=== PATIENT | male | born 1980 | race Caucasian/White ===

== ENCOUNTER 2020-09-19 09:48 | Emergency (ER) | payer BC, SELFPAY ==
--- NOTE | ~2020-09-19 | XR_ITS ---
EXAMINATION: XR tibia fibula RT 2V, XR ankle RT min 3V DATE: 09/19/2020 10:17 INDICATION: Lateral right ankle and proximal fibular pain post injury TECHNIQUE: 1. Anteroposterior and lateral views of the right tibia and fibula were obtained. 2. Anteroposterior, oblique, mortise, and lateral views of the right ankle were obtained. COMPARISON: None. FINDINGS: Nondisplaced oblique fracture at the proximal diaphysis of the right fibula. Bone alignment remains n ormal including a congruent ankle mortise. No other fractures identified. Joint spaces are normal at the right knee, ankle, mid and hindfoot. Soft tissue swelling about the lateral malleolus as well as anterior to the ankle. No right knee or ankle joint effusion. IMPRESSION: 1. Nondisplaced oblique fracture of the proximal right fibular diaphysis. Reviewed, dictated and finalized at location A. [facility] MANAGER IMPRESSION: 1. Nondisplaced oblique fracture of the proximal right fibular diaphysis.
[2020-09-19 09:58] VITALS: BP 143/82; PULSE 85; RESP 12; TEMP 36.2; O2SAT 100
--- NOTE | 2020-09-19 10:13 | ED.LOWEXIN ---
HPI - Extremity Injury (Lower) General Chief Complaint: Extremity Injury, Lower Stated Complaint: rt leg injury Source: patient Mode of arrival: ambulatory Limitations: no limitations History of Present Illness HPI Narrative: Patient is a 40-year-old male who presents with right leg pain. He reports hiking yesterday and slipped and fell, twisting her right leg. He reports pain below knee, mild ankle swelling. He denies all other injuries. He is weightbearing with pain. Denies taking [id number] medications at this time for pain relief. MD complaint: leg injury Related Data Home Medications Medication Instructions Recorded Confirmed No Home Medications 09/19/20 09/19/20 Allergies Allergy/AdvReac Type Severity Reaction Status Date / Time No Known Allergies Allergy Verified 09/19/20 10:31 Review of Systems Review of Systems: Narrative: CONSTITUTIONAL: Denies fever, chills, or sweats. EYES: Denies visual changes, redness, or discharge. ENT: Denies rhinorrhea, congestion, sore throat, or otalgia. CARDIOVASCULAR: Denies chest pain, palpitations, or edema. RESPIRATORY: Denies cough or dyspnea. GASTROINTESTINAL: Denies abdominal pain, nausea, vomiting, or diarrhea. GENITOURINARY: Denies dysuria or hematuria. SKIN: Denies rash or itching. MUSCULOSKELETAL: Right leg pain NEUROLOGIC: Denies headache, numbness, dizziness, or weakness. PSYCHIATRIC: Denies anxiety or depression. PMFSH Past Medical History Medical History (Updated 09/19/20 @ 10:52 by RISHABH Urban) No significant past medical history Surgical History Surgical History (Updated 09/19/20 @ 10:52 by RISHABH Urban) No significant past surgical history Family History Family History (Updated 09/19/20 @ 10:53 by RISHABH Urban) Other No significant family history Social History Social History (Updated 09/19/20 @ 10:54 by RISHABH Urban) Smoking status: Never smoker Alcohol intake: current Alcohol use details: Occasional Substance use: never Occupation/Education: occupation Exam Narrative: Exam Narrative: GENERAL: Well-appearing, well-nourished, and in no acute distress. HEAD: Normocephalic, atraumatic. EYES: No redness or drainage. ENT: Mucous membranes pink and moist. CHEST: No respiratory distress. HEART: Regular rate and rhythm. EXTREMITIES: Point tenderness distal of right knee, mild swelling at right lateral ankle. Good capillary refill, distal sensation intact SKIN: Warm, dry, no rash. NEURO: No focal deficits. Alert and oriented x3. Gait steady. PSYCH: Normal affect. No signs of depression or anxiety. MDM - Extremity Injury (Lower) MDM Narrative Medical decision making narrative: Patient has nondisplaced fracture of right proximal fibula. Patient placed in knee immobilizer and crutches at this time, follow-up with orthopedics. Instructed on pain control, ice, elevation. Patient is stable for discharge home with outpatient follow-up as discussed. Differential Diagnosis Differential diagnosis: Likely acute internal derangement of knee, fracture of femur, fracture of hip, ankle fracture and other (Fibula fracture) Imaging Data Radiologist's impression: ITS Impressions Ankle X-Ray 09/19/20 10:18 IMPRESSION: 1. Nondisplaced oblique fracture of the proximal right fibular diaphysis. Tibia/Fibula X-Ray 09/19/20 10:18 IMPRESSION: 1. Nondisplaced oblique fracture of the proximal right fibular diaphysis. Critical Care Time Critical Care Time Critical Care Time: No Discharge Plan Discharge Clinical Impression: Fracture, fibula, proximal Patient Disposition: Home, Self-Care Condition: Stable Instructions: Leg Fracture (ED) Additional Instructions: Keep knee immobilizer in place until further instruction from orthopedics. Please use crutches. Ice, elevate and rest injury. You may use ibuprofen or Tylenol for pain.
== END 2020-09-19 11:06 | disposition home or self-care (01) ==
PROVIDERS: Emergency Provider Nurse Practitioner; PCP Internal Medicine
DX: S82.831A Other fracture of upper and lower end of right fibula, initial encounter for closed fracture (principal); W01.0XXA Fall on same level from slipping, tripping and stumbling without subsequent striking against object, initial encounter; Y93.01 Activity, walking, marching and hiking
CPT/HCPCS: 73590; 73610; 99214; G0463; L1830